=== PATIENT | female | born 1940 | race Caucasian/White ===

== ENCOUNTER → 2025-08-03 10:13 | Outpatient (REF) | payer MEDICARE, OTHER, SELFPAY | LOC: RAD 10:13 | PROVIDERS: ATTENDING PHYSICIAN Internal Medicine; FAMILY PHYSICIAN Hospitalist | DX: R91.1 Solitary pulmonary nodule (principal) | CPT/HCPCS: 71250 ==

== ENCOUNTER → 2025-08-09 13:38 | Outpatient (REF) | payer MEDICARE, OTHER, SELFPAY | LOC: RCS 13:38 | PROVIDERS: ATTENDING PHYSICIAN Hospitalist | DX: I50.9 Heart failure, unspecified (principal) | CPT/HCPCS: 93306 ==